=== PATIENT | male | born 1955 | race Caucasian/White ===

== ENCOUNTER → 2021-06-12 | Outpatient (CLI) | payer MEDICARE ==
--- NOTE | 2021-06-12 08:57 | RAD ---
EXAM: ULTRASOUND ABDOMINAL AORTA. HISTORY: Abdominal aortic aneurysm screening. Smoking history. COMPARISON: None. FINDINGS: Sonographic evaluation of the abdominal aorta and common iliac arteries was performed. Proximally, the abdominal aorta measures 2.7 x 2.7 cm. In its midportion, 2.0 x 1.6 cm. Distally, 1.9 x 1.7 cm. The right common iliac artery measures 1.1 x 1.0 cm. The left measures 1.1 x 1.0 cm. There is no evidence of stenosis on Doppler. IMPRESSION: 1. No abdominal aortic aneurysm. Electronically signed by: Torrey Ruvalcaba MD (06/12/2021 8:54 AM) [facility]
== END ==
LOC: US 07:56
PROVIDERS: ATTEND Family Medicine
DX: Z13.6 Encounter for screening for cardiovascular disorders (principal); Z87.891 Personal history of nicotine dependence
CPT/HCPCS: 76770